=== PATIENT | female | born 1990 | race Caucasian/White ===

== ENCOUNTER 2018-11-23 12:50 | Emergency (ER) | payer OTHER ==
[2018-11-23 13:28] VITALS: BP 109/75
--- NOTE | 2018-11-23 13:39 | UC ---
Head Injury HPI - HPI Summary HPI Summary: CHIEF COMPLAINT and HPI: This is a 28-year-old female who hit her head after a fall 3 weeks ago without loss of consciousness. She comes to the [facility] concerned that she may have a concussion. 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 She denies loss of consciousness or subsequent nausea, vomiting or visual disturbance. However, in the intermittent. She has noted memory lapses , inability to handle conversation normally could and searching. She does not have head pain but she does feel that there is some tightness. She hit her head in the area of the right occiput. She denies neck pain. She also states that her time on the boat was very stressful and anxiety provoking and it was a period fluctuating work and sleep deprivation. NURSES NOTE REVIEWED: "several weeks ago pt hiot her head denies loc states she wants to know if she has a concussion." VITAL SIGNS REVIEWED. Within normal limits unless noted . . - History Of Current Complaint Chief Complaint: UCHeadInjury Stated Complaint: HEAD PAIN Time Seen by Provider: 11/23/18 13:33 Hx Last Menstrual Period: 11/17/18 Pain Intensity: 2 - Allergies/Home Medications Allergies/Adverse Reactions: Allergies Allergy/AdvReac Type Severity Reaction Status Date / Time No Known Allergies Allergy Verified 11/23/18 13:28 Home Medications: Home Medications Fluticasone NASAL SPRAY 50MCG* [Flonase NASAL SPRAY 50MCG*] 1 spray .ROUTE DAILY 11/23/18 [History Confirmed 11/23/18] ZyrTEC 10 MG TAB* 10 mg PO DAILY 11/23/18 [History Confirmed 11/23/18] PMH/Surg Hx/FS Hx/Imm Hx - Surgical History Surgical History: Yes Surgery Procedure, Year, and Place: tonsils - Social History Alcohol Use: Occasionally Substance Use Type: None Smoking Status (MU): Never Smoked Tobacco Review of Systems All Other Systems Reviewed And Are Negative: Yes Constitutional: Positive: Negative. Negative: Fever Skin: Positive: Negative Eyes: Positive: Negative ENT: Positive: Negative. Negative: Sinus Congestion, Sinus Pain/Tenderness Respiratory: Positive: Negative. Negative: Shortness Of Breath Cardiovascular: Positive: Negative. Negative: Palpitations Gastrointestinal: Positive: Negative. Negative: Abdominal Pain Neurological: Positive: Negative. Negative: Headache, Weakness, Numbness Is Patient Immunocompromised?: No Physical Exam - Summary Physical Exam Summary: Appearance: The patient is well-appearing, is in no pain or distress, and is well-nourished. Eyes: Conjunctiva are clear. Pupils are equal and reactive to light and accommodation. Extra ocular muscle movement is intact. ENT: The hearing is grossly normal, the pharynx is normal, and the TMs are normal. There is no muffled or hoarse voice. No stridor. Neck: The neck is supple and there is no lymphadenopathy. Respiratory: The chest is nontender to palpation and without crepitus. The lungs are clear, there are normal breath sounds, and there is no respiratory distress. No wheezes, rales or rhonchi. Cardiovascular: Heart sounds reveal a regular rate and rhythm. There are no clicks, rubs or murmurs. There are no carotid bruits or thrills. Circulation is grossly intact. Abdomen: The abdomen is soft and nontender. There is no organomegaly. Bowel sounds are present and within normal limits. No point tenderness at McBurneys point. Musculoskeletal: Strength is intact. The patient moves all extremities. Neurological: The patient is alert. Motor and sensory are examination grossly intact. Speech is normal. Psychological: The patient displays age appropriate behavior Skin: Negative for rashes. Triage Information Reviewed: Yes Vital Signs: Initial Vital Signs Temp 98 F 11/23/18 13:25 Pulse 84 11/23/18 13:25 Resp 15 11/23/18 13:25 BP 109/75 11/23/18 13:25 Pulse Ox 100 11/23/18 13:25 Vital Signs Reviewed: Yes Head Injury Course/Dx - Course Course Of Treatment: CHIEF COMPLAINT and HPI: This is a 28-year-old female who hit her head after a fall 3 weeks ago without loss of consciousness. She comes to the [facility] concerned that she may have a concussion. 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 She denies loss of consciousness or subsequent nausea, vomiting or visual disturbance. However, in the intermittent. She has noted memory lapses , inability to handle conversation normally could and searching. She does not have head pain but she does feel that there is some tightness. She hit her head in the area of the right occiput. She denies neck pain. She also states that her time on the boat was very stressful and anxiety provoking and it was a period fluctuating work and sleep deprivation. NURSES NOTE REVIEWED: " several weeks ago pt hiot her head denies loc states she wants to know if she has a concussion "VITAL SIGNS REVIEWED. Within normal limits unless noted. PAST MEDICAL HISTORY is significantly positive for: non-contributory to present complaint. Does have allergic rhinitis. Other chronic or recurrent medical problems include: noncontributory. VISIT HISTORY REVIEWED. V MEDICATION AND ALLERGY REVIEW contributory to current complaint: none. Anti-hypertensive medication: none FAMILY HISTORY is positive for: hypertension, , diabetes. 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 . REVIEW OF SYSTEMS is significantly positive for subjective symptoms of lack of concentration and communication. . PHYSICAL EXAMINATION is significantly positive for: Normal physical examination. MEDICAL DECISION MAKING: (Differential Diagnosis; Tests; Final Diagnosis): PLAN: I discussed with the patient and her mother a plan that would include follow-up with her regular doctor for further evaluation and treatment as needed. I don't believe that she needs a CT scan at this time and the patient and her mother concur. It may be that other tests might be useful, although the differential diagnosis also includes stress, anxiety and lack of sleep. I recommended cerebral rest as well as using this time away from her job to eat well, sleep and exercise. My diagnosis is possible postconcussive syndrome. I explained this diagnosis to the patient and that I couldn't completely rule out this diagnosis although I felt that other causes of her symptoms are more likely. MEDICATIONS REVIEWED. HYPERTENSION STATUS REVIEWED WITH PATIENT. - Differential Dx/Diagnosis Differential Diagnosis/HQI/PQRI: Cerebral Contusion, Cervical Sprain, Concussion Without LOC Provider Diagnosis: Post concussion syndrome Discharge - Sign-Out/Discharge Documenting (check all that apply): Patient Departure All imaging exams completed and their final reports reviewed: No Studies - Discharge Plan Condition: Stable Disposition: HOME Patient Education Materials: Post Concussion Syndrome (ED) Referrals: No Primary Care Phys,NOPCP [Primary Care Provider] - Additional Instructions: WE DISCUSSED: PLEASE SEEK CARE AT THE EMERGENCY DEPARTMENT IF SYMPTOMS WORSEN OR IF NEW SYMPTOMS DEVELOP. FOLLOW UP WITH YOUR PRIMARY CARE PHYSICIAN IF CONDITION CONTINUES BEYOND 3 DAYS WITHOUT IMPROVEMENT. We are open from 7 a.m. to 10 p.m. Call us with any questions or concerns. YOUR DIAGNOSIS IS: Possible postconcussive syndrome YOUR PRESCRIPTION RECOMMENDATION IS: Rest; "cerebral rest" by restricting computer use; get sufficient sleep; exercise; see attached instructions. OTHER INSTRUCTIONS: As we discussed, sleep deprivation, stress and anxiety could also be contributing to your subjective symptoms. My recommendation at this point is that you see your medical provider for further evaluation and other tests if they believe it would be useful. An organic cause (medical condition) for your symptoms is possible, although your examination here was completely normal. - Billing Disposition and Condition Condition: STABLE Disposition: Home
== END 2018-11-23 14:34 | disposition home or self-care (01) ==
LOC: UCEAST 12:50
DX: R41.3 Other amnesia (principal); F07.81 Postconcussional syndrome
CPT/HCPCS: 99201; G0463